=== PATIENT | male | born 1970 | race Caucasian/White ===

== ENCOUNTER → 2021-05-29 | Outpatient (CLI) | payer OTHER ==
[~2021-05-29] MED LIST: CIPRO500 MG PO; FLAGYL500 MG PO; FLOMAX0.4 MG PO; IBUPROFEN800 MG PO; NORCO 5-325 TA1 EACH PO
== END ==
LOC: EXRD 09:25
DX: R10.13 Epigastric pain (principal); K76.0 Fatty (change of) liver, not elsewhere classified
CPT/HCPCS: 76700